=== PATIENT | female | born 1990 | race Caucasian/White ===

== ENCOUNTER 2016-06-14 22:22 | Emergency (ER) | payer SELFPAY ==
--- NOTE | 2016-06-15 13:07 | ER ---
ADMIT: 06/14/2016 RM/LOC: ER [facility] MR#: [id number] [facility] [address] [place], [place] [id number] [facility] [address] [place] [id number] Emergency Room Report SEX: F AGE: 26 : 1990 DATE: 06/14/2016 HISTORY OF PRESENT ILLNESS: Patient is a 26-year-old female with a past medical history of Budd-Chiari syndrome, on Coumadin, who came to the ER with chief complaint of chest pain. The patient states she had chest pain for the last few weeks and months and has been followed up for the chest pain with the primary care doctor and today, also had another three episodes of the chest pain during the last 3 hours, which was in the middle of the chest, and radiated to the back. The patient denies any numbness, tingling, weakness or any other neurologic symptoms. The patient also states the pain is pleuritic and increases with deep inspiration. The pain is moderate in severity. The patient states the pain is not reproducible by palpation. PHYSICAL EXAMINATION: VITAL SIGNS: The patient had systolic blood pressure of 100, which was baseline per chart, was not tachycardic with normal O2 saturation of 98%. GENERAL: The patient was in no obvious distress. LUNGS: Clear bilaterally. HEART: Normal S1, S2 sounds without any murmurs. ABDOMEN: Soft. There is no pulsating mass in the abdomen. There is no pulse deficit in the upper and lower extremities. The rest of the physical exam was noncontributory. LABORATORY AND IMAGING DATA: Chest x-ray did not show any acute pathologies, EKG also was not contributory. PLAN: The pain was controlled with GI cocktail and Toradol IM. The patient was discharged to home with return precautions. Follow up with the primary care doctor. Preeti Castanon MD/ arnav JOB #: [id number] CC: Isma Mo MD, Attending Physician Amrik Pierson MD, Family Physician
== END 2016-06-15 01:07 | disposition home or self-care (01) ==
LOC: ER 22:22
DX: R07.9 Chest pain, unspecified (principal)